=== PATIENT | male | born 1980 | race Caucasian/White ===

== ENCOUNTER 2017-02-01 18:38 | Emergency (ER) | payer SELFPAY ==
[~2017-02-01] VITALS: Ht 170.1 cm; Wt 71.2 kg
[2017-02-01] MEDS ORDERED: KEFLEX500 M1 PO (19:08)
[2017-02-01] MEDS ORDERED: NAPROSYN500 MG PO (19:08)
== END 2017-02-01 19:49 | disposition home or self-care (01) ==
LOC: ED 18:38
DX: S01.112A Laceration without foreign body of left eyelid and periocular area, initial encounter (principal); W50.0XXA Accidental hit or strike by another person, initial encounter; Y93.72 Activity, wrestling; Y92.89 Other specified places as the place of occurrence of the external cause; Y99.8 Other external cause status